=== PATIENT | male | born 1950 ===

== ENCOUNTER 2018-03-18 06:25 | Inpatient (IN) | payer BC ==
[~2018-03-18 06:25] MED LIST: BUPIVACAINE HCL/PF 0.25% (2.5MG/ML) 10 ML VIAL LSI ONE; BUPIVACAINE LIPOSOME/PF (EXPAREL) 266 MG/20 ML VIAL NR ONE
[2018-03-18] MEDS ORDERED: THROMBIN (BOVINE) 5,000 UNIT VIAL TP ONE ×2 (07:30→08:46)
[2018-03-18] MEDS ORDERED: HEPARIN NA (PORCINE) 5,000 UNITS/ML 1ML VIAL ONE (07:30)
[2018-03-18] MEDS ORDERED: BENZOIN/ALOE VERA/STORAX/TOLU 58 ML BOTTLE ONE (07:30)
[2018-03-18] MEDS ORDERED: MIDAZOLAM HCL 2 MG/2 ML SINGLE DOSE VIAL ONE (08:19)
[2018-03-18] MEDS ORDERED: fentaNYL CITRATE 250 MCG/5 ML VIAL ONE ×2 (08:19→09:26)
[2018-03-18] MEDS ORDERED: SUCCINYLCHOLINE CHLORIDE 200 MG/10 ML VIAL ONE (08:20)
[2018-03-18] MEDS ORDERED: ROCURONIUM BROMIDE 50 MG/5 ML VIAL ONE (08:20)
[2018-03-18] MEDS ORDERED: PROPOFOL 20 ML ONE ×9 (08:20→12:16)
[2018-03-18] MEDS ORDERED: DESFLURANE GAS 240 ML BOTTLE IH ONE (08:23)
[2018-03-18] MEDS ORDERED: KETAMINE HCL 200 MG/20 ML VIAL ONE (08:23)
[2018-03-18] MEDS ORDERED: ceFAZolin 2 GRAM PREMIX BAG IVPB ONE (08:45)
[2018-03-18] MEDS ORDERED: VANCOMYCIN 1 GRAM (PRE-DOCKED) 1,000 MG/250 ML BAG IVPB ONE (08:45)
[2018-03-18] MEDS ORDERED: ACETAMINOPHEN INJECTION 100 ML IVPB ONE (09:00)
[2018-03-18] MEDS ORDERED: BUPIVACAINE LIPOSOME/PF (EXPAREL) 266 MG/20 ML VIAL NR ONE ×2 (09:00→12:45)
[2018-03-18] MEDS ORDERED: VANCOMYCIN 1,000 MG VIAL (RESTRICTED TO ID ONLY) ONE (09:07)
[2018-03-18] MEDS ORDERED: ceFAZolin SODIUM 1 GM VIAL ONE ×2 (09:07→12:08)
[2018-03-18] MEDS ORDERED: LIDOCAINE HCL/PF 2% SDV 5ML VIAL ONE ×2 (09:07→12:48)
[2018-03-18] MEDS ORDERED: ePHEDrine SULFATE 50 MG/1 ML AMPULE ONE (09:30)
[2018-03-18] MEDS ORDERED: BUPIVACAINE HCL/PF 0.25% (2.5MG/ML) 10 ML VIAL ONE (10:05)
[2018-03-18] MEDS ORDERED: morphine SULFATE/Preservative Free 0.5 MG/ML (1cc Syringe) ONE ×3 (11:51→12:34)
[2018-03-18] MEDS ORDERED: NEOSTIGMINE METHYLSULFATE 0.5 MG/ML - 10 ML MDV ONE (12:24)
[2018-03-18] MEDS ORDERED: GLYCOPYRROLATE 0.2 MG/1 ML VIAL ONE (12:24)
[2018-03-18] MEDS ORDERED: ONDANSETRON 4 MG/2 ML VIAL ONE (12:37)
[2018-03-18] MEDS ORDERED: BUPIVACAINE HCL/PF 0.25% (2.5MG/ML) 10 ML VIAL LSI ONE (12:45)
[2018-03-18] MEDS ORDERED: TRANEXAMIC ACID 1000 MG/10 ML VIAL ONE (13:04)
[2018-03-18] MEDS ORDERED: ONDANSETRON 4 MG/2 ML VIAL IVPUSH PRN ×2 (13:41→14:02)
[2018-03-18] MEDS ORDERED: oxyCODONE HCL 5 MG TABLET PO PRN (13:41)
[2018-03-18] MEDS ORDERED: LACTATED RINGERS SOLUTION 1,000 ML IV SCH ×2 (13:45→14:15)
--- NOTE | 2018-03-18 13:47 | PN ---
Progress Note (short form) - Note Progress Note: 67M s/p L2, L3 laminectomies; L4, L5 revision laminectomies; L2-L3 PLIF; T12-S1 PISF POD #0. -Admit to ICU post-op. -Pain control: no NSAID's. -NPO until flatus. -DVT PPx: -Mechanical only: GILL's, SCD's. -Post-op Ancef x 2 doses. -f/u AM labs. -Incentive spirometry. -PT/OT/Rehab, OOB. -WBAT B/L UE & LE. -No heavy lifting, bending or twisting. -d/c Best catheter when ambulating; f/u TOV (8 hrs. max). -Keep dressing clean & dry. -B/L LE NV checks. -Care per primary medical hospitalist teams. -Will follow. -Discharge planning: f/u [facility] [place] office within 7-10 days of hospital discharge; call for appointment; . Shravan Sauer MD (Orthopaedic Surgery).
--- NOTE | 2018-03-18 13:51 | OP ---
Operative Note - Note: Operative Date: 03/18/18 Pre-Operative Diagnosis: Lumbar spinal stenosis Operation: 1. L2, L3 laminectomies. 2. L4, L5 revision laminectomies. 3. L2- L3 PLIF. 4. T12-S1 PISF. 5. Bone marrow aspirate. 6. Bone autograft. 7. Bone allograft Post-Operative Diagnosis: Same as Pre-op Surgeon: Tr Sauer Textile Conservator: Shravan Sauer Anesthesiologist/PAINT STRIPING MACHINE OPERATOR: Michelle Prasad Anesthesia: General, Spinal Specimens Removed: L2-L3 disc Estimated Blood Loss (mls): 600 Drains & Tubes with Location: 1 x superficial HemoVac Blood Volume Replaced (mls): 210 (Cell Saver) Fluid Volume Replaced (mls): 3,000 (Crystalloid) Operative Report Dictated: Yes
--- NOTE | 2018-03-18 17:02 | PN ---
Physical Exam: SUBJECTIVE: Patient seen and examined in ICU. Pain is well-managed. OBJECTIVE: Vital Signs Period Temp Pulse Resp BP Sys/Domingo Pulse Ox Last 24 Hr 97.5 F-98.1 F 69-98 15-24 102-130/48-80 96-100 GENERAL: The patient is awake, alert, and fully oriented, in no acute distress. LUNGS: Breath sounds equal, clear to auscultation bilaterally, no wheezes, no crackles, no accessory muscle use. HEART: Regular rate and rhythm, S1, S2 ABDOMEN: Soft, nontender, nondistended EXTREMITIES: 2+ pulses, warm, well-perfused, no edema. NEUROLOGICAL: Cranial nerves II through XII grossly intact. Normal speech. BACK: surgical dressing not visualized; Hemovac drain with dark sanguinous drainage Laboratory Results - last 24 hr 03/18/18 03/18/18 06:39 07:06 Blood Type B POSITIVE B POSITIVE Antibody Screen Negative Active Medications Generic Name Dose Route Start Last Admin Trade Name Freq PRN Reason Stop Dose Admin Acetaminophen 1,000 mg 03/18/18 18:00 Ofirmev Injection - IVPB 03/20/18 10:01 Q8H-IV ESTELA Amlodipine Besylate 10 mg 03/19/18 10:00 Norvasc - PO DAILY ESTELA Finasteride 5 mg 03/19/18 10:00 Proscar - PO DAILY ESTELA Cefazolin Sodium/Dextrose 2 gm in 50 mls @ 100 mls/hr 03/18/18 18:00 Ancef 2 Gm Premixed Ivpb - IVPB 03/19/18 02:29 Q8H-IV ESTELA Losartan Potassium 50 mg 03/18/18 22:00 Cozaar - PO BID ESTELA Eszopicone(Lunesta) 3 mg 03/18/18 22:00 3mg- Patient's Own PO Medication (Non- HS PRN Formulary) sleep Ondansetron HCl 4 mg 03/18/18 13:41 Zofran Injection IVPUSH Q6H PRN NAUSEA AND/OR VOMITING Oxycodone HCl 5 mg 03/18/18 13:41 Roxicodone - PO 03/19/18 13:40 Q4H PRN PAIN LEVEL 4-6 Oxycodone HCl 10 mg 03/18/18 13:41 Roxicodone - PO Q4H PRN PAIN LEVEL 7 - 10 Tamsulosin HCl 0.4 mg 03/19/18 08:30 Flomax - PO DAILY@0830 [facility] ASSESSMENT/PLAN 67 year-old male with a PMH significant for HTN, HLD, CAD, BPH, gout, primary insomnia, and lumbar spinal stenosis s/p surgery today. Lumbar spinal stenosis s/p L2, L3 laminectomies, L4, L5 revision laminectomies, L2-L3 PLIF, T12-S1 PISF --POD #0 --oxycodone, IV Tylenol, Zofran PRN for pain and nausea; no NSAIDS --NPO until flatus --post-op Ancef x 2 doses --incentive spirometry --d/c pires catheter when ambulating; f/u TOV (8 hrs. max) --b/l LE neuro checks --labs in am Hypertension --continue Losartan, amlodipine Hyperlipidemia --continue statin Coronary artery disease --continue amlodipine, Losartan, statin BPH --continue tamsulosin Primary insomnia --hold Lunesta for now, need to be able to perform neuro checks Physical therapy --WBAT B/L UE & LE --no heavy lifting, bending or twisting DVT prophylaxis: mechanical only, SCDs Dispo: continues to require ICU level care. Full code. Visit type - Emergency Visit Emergency Visit: No - New Patient This patient is new to me today: Yes Date on this admission: 03/18/18 - Critical Care Critical Care patient: Yes Total Critical Care Time (in minutes): 35 Critical Care Statement: The care of this patient involved high complexity decision making to prevent further life threatening deterioration of the patient 's condition and/or to evaluate & treat vital organ system(s) failure or risk of failure.
[2018-03-18] MEDS: ACETAMINOPHEN 1000 MG/100 ML VIAL (NON FORMULARY) IVPB SCH (17:32)
[2018-03-18] MEDS: CEFAZOLIN 2 GM/D5W 2 GM/50 ML ML IVPB SCH (17:36)
[2018-03-18] MEDS ORDERED: ceFAZolin 2 GRAM PREMIX BAG IVPB SCH (18:00)
[2018-03-18] MEDS: LACTATED RINGERS SOLUTION 1,000 ML/1,000 ML INFUS.BAG IV SCH (19:00)
--- NOTE | 2018-03-18 19:24 | CONSULT ---
Consultation: REQUESTING PROVIDER: CONSULT REQUEST: We have been asked to medically evaluate this patient for ( specify). HISTORY OF PRESENT ILLNESS: This is a 67 yo M with lumbar spinal stenosis, HTN, HLD, DM, BPH, CAD, gout, primary insomnia, who presents POD 0 s/p L2, L3 laminectomies, L4- L5 revision laminectomies, L2-L3 PLIF, T12-S1 PISF, Bone marrow aspirate, Bone autograft and Bone allograft. EBS 600, replaced cell saver 210 and 3 L Crystalloid. Patient is afebrile and hemodynamically stable. Patient denies cp, son, throat pain, cough, n/v. REVIEW OF SYSTEMS: CONSTITUTIONAL: Absent: fever, chills HEENT: Absent: rhinorrhea, nasal congestion, throat pain, throat swelling, difficulty swallowing CARDIOVASCULAR: Absent: chest pain, syncope, palpitations RESPIRATORY: Absent: cough, shortness of breath, orthopnea GASTROINTESTINAL: Absent: abdominal pain, abdominal distension, nausea, vomiting GENITOURINARY: Absent: flank pain MUSCULOSKELETAL: Absent: joint swelling SKIN: Absent: rash, itching, pallor HEMATOLOGIC/IMMUNOLOGIC: Absent: easy bleeding, easy bruising ENDOCRINE: Absent: heat intolerance, cold intolerance NEUROLOGIC: Absent: headache, new focal weakness or paresthesias PSYCHIATRIC: Absent: anxiety, depression PHYSICAL EXAMINATION Vital Signs - 24 hr 03/18/18 03/18/18 03/18/18 07:04 07:21 13:50 Temperature 98.1 F 97.5 F L Pulse Rate 69 77 Respiratory 16 16 Rate Blood Pressure 123/77 110/50 L O2 Sat by Pulse 100 99 Oximetry (%) 03/18/18 03/18/18 03/18/18 14:00 14:15 14:30 Temperature Pulse Rate 95 H 89 87 Respiratory 16 24 H 22 H Rate Blood Pressure 102/80 122/68 111/72 O2 Sat by Pulse 96 96 98 Oximetry (%) 03/18/18 03/18/18 03/18/18 14:45 15:00 15:15 Temperature Pulse Rate 98 H 98 H 80 Respiratory 15 16 16 Rate Blood Pressure 122/48 L 130/80 125/58 L O2 Sat by Pulse 99 96 100 Oximetry (%) 03/18/18 03/18/18 03/18/18 15:30 15:45 16:00 Temperature Pulse Rate 80 84 78 Respiratory 17 16 18 Rate Blood Pressure 125/74 129/59 L 118/70 O2 Sat by Pulse 100 100 100 Oximetry (%) 03/18/18 03/18/18 03/18/18 16:15 16:30 17:17 Temperature 97.8 F 98.2 F Pulse Rate 80 82 Respiratory 16 16 Rate Blood Pressure 122/64 130/74 O2 Sat by Pulse 100 Oximetry (%) 03/18/18 18:06 Temperature Pulse Rate 81 Respiratory 22 H Rate Blood Pressure 134/79 O2 Sat by Pulse Oximetry (%) GENERAL: Awake, alert, and fully oriented, in no acute distress. HEAD: Normal with no signs of trauma. EYES: Pupils equal, round and reactive to light, extraocular movements intact, sclera anicteric, conjunctiva clear. No lid lag. EARS, NOSE, THROAT: Moist mucous membranes. NECK: supple LUNGS: Breath sounds equal, clear to auscultation bilaterally. HEART: Regular rate and rhythm, normal S1 and S2 ABDOMEN: Soft, nontender, not distended, globally decreased bowel sounds, no guarding, no rebound, no masses. MUSCULOSKELETAL: No CVA tenderness. UPPER EXTREMITIES: 2+ pulses, warm, well-perfused. LOWER EXTREMITIES: 2+ pulses, warm, well-perfused. No calf tenderness. No peripheral edema. NEUROLOGICAL: Cranial nerves II-XII grossly intact. Normal speech. LE strenght 5/5 and sensation intact b/l. UE strenght 5/5 and sensation intact b/l PSYCHIATRIC: Cooperative. Good eye contact. Appropriate mood and affect. SKIN: Warm, dry Laboratory Results - last 24 hr 03/18/18 03/18/18 06:39 07:06 Blood Type B POSITIVE B POSITIVE Antibody Screen Negative Active Medications Generic Name Dose Route Start Last Admin Trade Name Magaly PRN Reason Stop Dose Admin Acetaminophen 1,000 mg 03/18/18 18:00 03/18/18 17:32 Ofirmev Injection - IVPB 03/20/18 10:01 1,000 mg Q8H-IV ESTELA Administration Amlodipine Besylate 10 mg 03/19/18 10:00 Norvasc - PO DAILY ESTELA Finasteride 5 mg 03/19/18 10:00 Proscar - PO DAILY ESTELA Cefazolin Sodium/Dextrose 2 gm in 50 mls @ 100 mls/hr 03/18/18 18:00 17:36 Ancef 2 Gm Premixed Ivpb - IVPB 03/19/18 02:29 100 mls/hr Q8H-IV ESTELA Administration Losartan Potassium 50 mg 03/18/18 22:00 Cozaar - PO BID ESTELA Eszopicone(Lunesta) 3 mg 03/18/18 22:00 3mg- Patient's Own PO Medication (Non- HS PRN Formulary) sleep Ondansetron HCl 4 mg 03/18/18 13:41 Zofran Injection IVPUSH Q6H PRN NAUSEA AND/OR VOMITING Oxycodone HCl 5 mg 03/18/18 13:41 Roxicodone - PO 03/19/18 13:40 Q4H PRN PAIN LEVEL 4-6 Oxycodone HCl 10 mg 03/18/18 13:41 Roxicodone - PO Q4H PRN PAIN LEVEL 7 - 10 Tamsulosin HCl 0.4 mg 03/19/18 08:30 Flomax - PO DAILY@0830 [facility] ASSESSMENT/PLAN: 67 yo M with PMH of spinal stenosis, HTN, HLD, diet controlled DM, BPH, CAD, gout, primary insomnia,POD 0 s/p L2, L3 laminectomies, L4- L5 revision laminectomies, L2-L3 PLIF, T12-S1 PISF. POD 0 s/p L2, L3 laminectomies, L4- L5 revision laminectomies, L2-L3 PLIF, T12- S1 PISF HTN HLD DM BPH CAD Gout insomnia -oxicodone and tylenol pain control, avoid NSAIDS -zofran prn nausea -ppx ancef 2 doses -LR @ 125 -npo until flatus -maintain pires until ambulating; f/u UO -incentive spirometry -bed rest -scd's dvt ppx -f/u h/h -b/l LE neuro checks q2h -continue home norvasc, cozar -contninue home flomax -continue home lunesta -asa, statin held. Dispo: We will continue to follow the patient. Thank you for this consultative opportunity. Problem List - Problems (1) Spinal stenosis Code(s): M48.00 - SPINAL STENOSIS, SITE UNSPECIFIED (2) Borderline diabetes Code(s): R73.03 - PREDIABETES (3) Borderline diabetes mellitus Code(s): R73.03 - PREDIABETES (4) HTN (hypertension) Code(s): I10 - ESSENTIAL (PRIMARY) HYPERTENSION (5) HLD (hyperlipidemia) Code(s): E78.5 - HYPERLIPIDEMIA, UNSPECIFIED (6) BPH (benign prostatic hyperplasia) Code(s): N40.0 - BENIGN PROSTATIC HYPERPLASIA WITHOUT LOWER URINRY TRACT SYMP (7) Primary insomnia Code(s): F51.01 - PRIMARY INSOMNIA (8) S/P laminectomy Code(s): Z98.890 - OTHER SPECIFIED POSTPROCEDURAL STATES Visit type - Emergency Visit Emergency Visit: Yes ED Registration Date: 03/18/18 Care time: The patient presented to the Emergency Department on the above date and was hospitalized for further evaluation of their emergent condition. - New Patient This patient is new to me today: Yes Date on this admission: 03/18/18 - Critical Care Critical Care patient: Yes Total Critical Care Time (in minutes): 35 Critical Care Statement: The care of this patient involved high complexity decision making to prevent further life threatening deterioration of the patient 's condition and/or to evaluate & treat vital organ system(s) failure or risk of failure.
[2018-03-18] MEDS: oxyCODONE HCL 5 MG TABLET PO PRN (20:20)
[2018-03-18] MEDS: LOSARTAN POTASSIUM 50 MG TABLET (FP) PO SCH (21:42)
[2018-03-18] MEDS ORDERED: ESZOPICLONE 3 MG PO PRN (22:00)
--- NOTE | 2018-03-18 22:01 | OP ---
DATE OF OPERATION: 03/18/2018 SURGEON: Tr Sauer M.D. MANUFACTURING ENGINEER PAINT: Shravan Sauer M.D. PREOPERATIVE DIAGNOSES: Spinal stenosis L2, 3, 4, 5 with kyphosis and segmental instability. POSTOPERATIVE DIAGNOSES: Spinal stenosis L2, 3, 4, 5 with kyphosis and segmental instability. OPERATION PERFORMED: 1. Laminectomy L2-3, revision laminectomy L4-5. 2. Daugherty-Loaiza osteotomy L3-4. 3. Posterior lumbar interbody fusion with cage, L2-3. 4. Instrumented pedicle screw instrumentation T12 to S1. 5. Posterior arthrodesis T12 to S1. 6. Use of bone marrow aspirate concentrate as well as intraoperative fluoroscopy. 7. Complex wound closure of 40 cm. ANESTHESIA: General. ANTIBIOTICS GIVEN: 2 g Kefzol, 1 g vancomycin preoperative; 1 g Kefzol given at the time of instrumentation. The wounds were thoroughly lavaged throughout the procedure with normal saline. OPERATION DETAILS: The patient was correctly identified, brought out into the operating room, placed prone on the Tushar table. Timeout was called. Imaging was available for intraoperative evaluation. Neuromonitoring placed. Padding of all bony prominences with attention to the eyes as well as the positioning of the brachial plexus. The old wound was excised. The old wound was then extended proximally to the lower thoracic level at approximately T11. A dissection using electrocautery as well as knives, Daniel elevators, dissection was taken through down to the tip of the spinous processes, skirting around the spinous processes, over the lamina, over the facet joints to expose the entire spine from about T11 to S1. The distal elements that had been dissected in the past with fibrous tissues were readily noted. Lateral fluoroscopic x-rays helped us identify the areas appropriately noted and correlated with the MRI scanning, where there was a large bulging disk, retrolisthesis, flat back, as noted on the MRI, as well as stenosis due to disk prolapse, this at L2- 3. The disk at L4-5 was wide open and no bulging noted. Using Leksell rongeurs, Kerrison upcuts as well as osteotomes to incise the lateral surface of the vertebral canal margins, the bone was imploded inwards. The bone of the distal end of the original surgery, which was thickened with bone, was excised using osteotomes appropriately. All bone was delivered and saved for use of as autologous bone graft in the [employer]. This gave a complete laminectomy from L2 right down to L5, thus in L2-3 laminectomy and revision L3-4 laminectomy being performed at L3-4. A Daugherty-Loaiza osteotomy was performed to correct the actual kyphotic alignment. This was simply performed using Leksell rongeurs as well as Kerrison upcuts. The dura was unharmed and remained fully intact. This was exposed widely from L2 right down to L5. All neural foramina were capacious and exit of each nerve was noted freely within the confines of each foramen. Once this had been completed, the theca was retracted from [id number] at the L2-3 level. The epidural veins were dealt with with bipolar Bovie set at 50 mA. The diathermy of all these vessels enabled easy access to the disk. The disk was opened with an annulotomy and the shaver was inserted. The shaving was to size 9, and the size, it must be noted, that all disk material was removed, the disk was dry, but the endplates were freed of all cartilaginous material right down to bone itself. The disk was filled with bone, that is autologous bone that had been milled in the [employer], and the cage followed. The cage had bone graft inserted in it; this was a TETRAfuse cage, this was a 10-mm, 40-link spacer, 23 mm in length. Cage was seated anteriorly to encourage the lordosis appropriately. Once this had been completed, the pedicles of T12 to S1 were entered. The only pedicle not seated was L5, but each pedicle was drilled with a 4.5 drill bit, each pedicle was palpated with a ball-tip feeler, and once this had been completed, each screw measured 6.5 x 45 screws and accepting the S1 and L4 screws, which were measured firstly by 6.5. Each screw was measured with intraoperative neuromonitoring and found to be well-above the safe parameters, that is well above 20 mA, each screw. Once this had been completed, the rods were contoured appropriately and fixed to the screw heads with the appropriate torque device, tightening the caps at each level, one crosslink utilized in the mid section of the actual procedure. At that point, the muscle was gently retracted laterally. The intertransverse plane opened completely. We harvested 120 mL of marrow aspirate concentrate from the left posterior ileum, and this was appropriately spun down to the CD34 cells. The concentrate enabled premixing with the bone graft, and the bone graft was placed in the intertransverse plane from [id number] and started from T12 right down to S1, thus completing the entire T12 to S1 instrumentation. The rods held the Daughetry-Loaiza osteotomy open, indeed PLIF cage seated encouraged further lordosis as well. The wounds were thoroughly lavaged throughout the closure, muscle 1 Vicryl, fascia 1 Vicryl, subcutaneous 1 and 2-0 Vicryl, skin ben. Drainage, 1/8-inch Hemovac x1. This concluded a 40-cm complex wound closure. No complications. Operation went extremely well. Cell Saver blood given back to him amounted to about 250 mL, about 400 mL of blood were lost at the operation. PLAN: For patient to be nursed in the ICU for pain management. Intraoperative Duramorph and fentanyl with Marcaine inserted, followed by Exparel being seated in the dorsal rami and appropriate soft tissue accordingly. MD WANG [id number] MTDD
[2018-03-18] MEDS: ATORVASTATIN CA 10 MG TABLET (FP) PO SCH (23:04)
[2018-03-19] MEDS: ACETAMINOPHEN 1000 MG/100 ML VIAL (NON FORMULARY) IVPB SCH ×3 (01:05→18:00)
[2018-03-19] MEDS: CEFAZOLIN 2 GM/D5W 2 GM/50 ML ML IVPB SCH (01:05)
[2018-03-19] MEDS: oxyCODONE HCL 5 MG TABLET PO PRN ×4 (05:00→22:17)
[2018-03-19 06:30] LABS: HEMOGLOBIN 9.3 GM/dL (11.7-16.9); MCH 20.9 pg (25.7-33.7); MCHC 30.8 g/dl (32.0-35.9); MEAN CELL VOLUME 67.8 fl (80-96); PLATELET COUNT 230 K/MM3 (134-434); RBC 4.43 M/mm3 (4.00-5.60); RDW 15.4 % (11.9-15.9); WHITE BLOOD COUNT 14.7 K/mm3 (4.0-10.0)
[2018-03-19 07:24] LABS: ANION GAP 10 MMOL/L (8-16); BLOOD UREA NITROGEN 17 mg/dL (7-18); CALCIUM 8.8 mg/dL (8.5-10.1); CHLORIDE 107 mmol/L (98-107); CO2 24 mmol/L (21-32); CREATININE 0.9 mg/dL (0.55-1.3); GLUCOSE,RANDOM 92 mg/dL (74-106); PHOSPHOROUS 4.8 mg/dL (2.5-4.9); POTASSIUM 4.6 mmol/L (3.5-5.1); SODIUM 141 mmol/L (136-145)
--- NOTE | 2018-03-19 08:42 | PN ---
Progress Note, Physician Chief Complaint: s/p L4-S1 lumbar decomprssion adn fusion under general anesthesia History of Present Illness: intrathecal duramorph for post op pain control. post op day one - Current Medication List Current Medications: Active Medications Acetaminophen (Ofirmev Injection -) 1,000 mg IVPB Q8H-IV ESTELA Stop: 03/20/18 10:01 Last Admin: 03/19/18 01:05 Dose: 1,000 mg Amlodipine Besylate (Norvasc -) 10 mg PO DAILY [facility] Atorvastatin Calcium (Lipitor -) 10 mg PO HS [facility] Last Admin: 03/18/18 23:04 Dose: 10 mg Finasteride (Proscar -) 5 mg PO DAILY [facility] Lactated Ringer's (Lactated Ringers Solution) 1,000 ml in 1,000 mls @ 125 mls/ hr IV ASDIR [facility] Last Admin: 03/18/18 19:00 Dose: 125 mls/hr Losartan Potassium (Cozaar -) 50 mg PO BID [facility] Last Admin: 03/18/18 21:42 Dose: 50 mg Ondansetron HCl (Zofran Injection) 4 mg IVPUSH Q6H PRN PRN Reason: NAUSEA AND/OR VOMITING Oxycodone HCl (Roxicodone -) 5 mg PO Q4H PRN PRN Reason: PAIN LEVEL 4-6 Stop: 03/19/18 13:40 Oxycodone HCl (Roxicodone -) 10 mg PO Q4H PRN PRN Reason: PAIN LEVEL 7 - 10 Last Admin: 03/19/18 05:00 Dose: 10 mg Tamsulosin HCl (Flomax -) 0.4 mg PO DAILY@0830 [facility] - Objective Vital Signs: Vital Signs Temperature 98.7 F 03/19/18 02:00 Pulse Rate 69 03/19/18 04:35 Respiratory Rate 18 03/19/18 04:35 Blood Pressure 117/65 03/19/18 04:35 O2 Sat by Pulse Oximetry (%) 100 03/18/18 19:51 Constitutional: Yes: Well Nourished Cardiovascular: Yes: WNL Respiratory: Yes: WNL Gastrointestinal: Yes: WNL Labs: CBC, BMP 03/19/18 05:30 03/19/18 05:30 Assessment/Plan Pain controlled, no nausea or vomiting, no adverse effects from anesthetic. Dept of anesthesia will sign off care at this time.
--- NOTE | 2018-03-19 09:08 | PN ---
Physical Exam: SUBJECTIVE: Patient seen and examined at the bedside. in no acute distress. pain controlled. not yet passing gas, but no abdominal pain or tenderness. OBJECTIVE: post op day #1: L2,L3 laminectomies. L4, L5 revision laminectomies, PLIF. T12- S1 PISF. bone marrow aspirate. bone autograft, bone allograft Vital Signs Period Temp Pulse Resp BP Sys/Domingo Pulse Ox Last 24 Hr 97.5 F-98.9 F 67-98 12-24 102-148/48-83 96-100 GENERAL: The patient is awake, alert, and fully oriented, in no acute distress. HEAD: Normal with no signs of trauma. EYES: PERRL, extraocular movements intact, sclera anicteric, conjunctiva clear. No ptosis. ENT: Ears normal, nares patent, oropharynx clear without exudates, moist mucous membranes. NECK: Trachea midline, full range of motion, supple. LUNGS: Breath sounds equal, clear to auscultation bilaterally HEART: Regular rate and rhythm ABDOMEN: Soft, nontender, nondistended, normoactive bowel sounds, no guarding, no rebound, no hepatosplenomegaly, no masses. EXTREMITIES: no edema. NEUROLOGICAL:Normal speech, gait not observed. PSYCH: Normal mood, normal affect. SKIN: Warm, dry, normal turgor, no rashes or lesions noted Laboratory Results - last 24 hr 03/18/18 03/19/18 03/19/18 07:06 05:30 05:30 WBC 14.7 H RBC 4.43 Hgb 9.3 L Hct 30.0 L MCV 67.8 L MCH 20.9 L MCHC 30.8 L RDW 15.4 Plt Count 230 MPV 8.0 Sodium 141 Potassium 4.6 Chloride 107 Carbon Dioxide 24 Anion Gap 10 BUN 17 Creatinine 0.9 Creat Clearance w eGFR > 60 Random Glucose 92 Calcium 8.8 Phosphorus 4.8 Magnesium 2.0 Blood Type B POSITIVE Active Medications Generic Name Dose Route Start Last Admin Trade Name Freq PRN Reason Stop Dose Admin Acetaminophen 1,000 mg 03/18/18 18:00 03/19/18 01:05 Ofirmev Injection - IVPB 03/20/18 10:01 1,000 mg Q8H-IV ESTELA Administration Amlodipine Besylate 10 mg 03/19/18 10:00 Norvasc - PO DAILY ESTELA Atorvastatin Calcium 10 mg 10/01/18 22:30 03/18/18 23:04 Lipitor - PO 10 mg HS ESTELA Administration Finasteride 5 mg 03/19/18 10:00 Proscar - PO DAILY ESTELA Lactated Ringer's 1,000 ml in 1,000 mls @ 125 mls/hr 03/18/18 20:45 03/18/18 19:00 Lactated Ringers Solution IV 125 mls/hr ASDIR ESTELA Administration Losartan Potassium 50 mg 03/18/18 22:00 03/18/18 21:42 Cozaar - PO 50 mg BID ESTELA Administration Ondansetron HCl 4 mg 03/18/18 13:41 Zofran Injection IVPUSH Q6H PRN NAUSEA AND/OR VOMITING Oxycodone HCl 5 mg 03/18/18 13:41 Roxicodone - PO 03/19/18 13:40 Q4H PRN PAIN LEVEL 4-6 Oxycodone HCl 10 mg 03/18/18 13:41 03/19/18 05:00 Roxicodone - PO 10 mg Q4H PRN Administration PAIN LEVEL 7 - 10 Tamsulosin HCl 0.4 mg 03/19/18 08:30 Flomax - PO DAILY@0830 [facility] ASSESSMENT/PLAN: Patient is a 67 year old male with a significant past medical history of spinal stenosis, hypertension, hld, dm (diet controlled), BPH, CAD, gout and insomnia. He is POD #1 of L2, L3 laminectomies, L4- L5 revision laminectomies, L2-L3 PLIF, T12-S1 PISF. Currently in the ICU for close post op monitoring. Back Surgery s/p laminectomies, L4- L5 revision laminectomies, L2-L3 PLIF, T12-S1 PISF. Currently in the ICU for close post op monitoring. Denies pain currently, NPO until passing gas, has + bowel sound. Given preop antibiotics, vitals stable. wbc mildly elevated w/o fever. monitor Encourage incentive hipolito PT when cleared per surgery. On IVF LR, SCDs bowel regimen Card: HLD: On Lipitor HTN: BP contolled on Cozaar CAD: On lipitor Endocrine: DM: Monitor daily serum glucose. : BPH, montior intake and output. On Proscar, flomax fen LR @ 125cc/hr monitor electrolytes with daily labs advance diet as tolerated prophy SCDs No a/c full code Visit type - Emergency Visit Emergency Visit: Yes ED Registration Date: 03/18/18 Care time: The patient presented to the Emergency Department on the above date and was hospitalized for further evaluation of their emergent condition. - New Patient This patient is new to me today: Yes Date on this admission: 03/19/18 - Critical Care Critical Care patient: Yes Total Critical Care Time (in minutes): 45 Critical Care Statement: The care of this patient involved high complexity decision making to prevent further life threatening deterioration of the patient 's condition and/or to evaluate & treat vital organ system(s) failure or risk of failure. - Discharge Referral Referred to [facility] Med P.C.: No
[2018-03-19] MEDS: TAMSULOSIN HCL 0.4 MG CAP.ER.24H (FP) PO SCH (09:30)
[2018-03-19] MEDS: LOSARTAN POTASSIUM 50 MG TABLET (FP) PO SCH ×2 (10:10→22:17)
[2018-03-19] MEDS: FINASTERIDE 5 MG TABLET (FP) PO SCH (10:10)
[2018-03-19] MEDS: amLODIPine BESYLATE 10 MG TABLET (FP) PO SCH (10:10)
--- NOTE | 2018-03-19 12:52 | PN ---
Teaching Attending Note Name of Resident: Jania Diamond ATTENDING PHYSICIAN STATEMENT I saw and evaluated the patient. I reviewed the resident's note and discussed the case with the resident. I agree with the resident's findings and plan as documented. SUBJECTIVE: Pt seen and examined in the ICU. Pain controlled. Denies nausea, reports flatus. No shortness of breath or chest pain. OBJECTIVE: Vital Signs Period Temp Pulse Resp BP Sys/Domingo Pulse Ox Last 24 Hr 97.5 F-98.9 F 67-98 12-24 102-148/48-83 96-100 Intake & Output 03/16/18 03/17/18 03/18/18 03/19/18 23:59 23:59 23:59 23:59 Intake Total 4035 1600 Output Total 2730 610 Balance 1305 990 Weight 94.007 kg Gen: NAD at rest Heart: RRR Lung: decreased breath sounds at the bases Abd: soft, nontender Ext: no edema Drain serosanguinous CBC, BMP 03/19/18 05:30 03/19/18 05:30 Active Medications Acetaminophen (Ofirmev Injection -) 1,000 mg IVPB Q8H-IV ESTELA Stop: 03/20/18 10:01 Last Admin: 03/19/18 10:10 Dose: 1,000 mg Amlodipine Besylate (Norvasc -) 10 mg PO DAILY [facility] Last Admin: 03/19/18 10:10 Dose: 10 mg Atorvastatin Calcium (Lipitor -) 10 mg PO HS [facility] Last Admin: 03/18/18 23:04 Dose: 10 mg Finasteride (Proscar -) 5 mg PO DAILY [facility] Last Admin: 03/19/18 10:10 Dose: 5 mg Lactated Ringer's (Lactated Ringers Solution) 1,000 ml in 1,000 mls @ 125 mls/ hr IV ASDIR [facility] Last Admin: 03/18/18 19:00 Dose: 125 mls/hr Losartan Potassium (Cozaar -) 50 mg PO BID [facility] Last Admin: 03/19/18 10:10 Dose: 50 mg Ondansetron HCl (Zofran Injection) 4 mg IVPUSH Q6H PRN PRN Reason: NAUSEA AND/OR VOMITING Oxycodone HCl (Roxicodone -) 5 mg PO Q4H PRN PRN Reason: PAIN LEVEL 4-6 Stop: 03/19/18 13:40 Oxycodone HCl (Roxicodone -) 10 mg PO Q4H PRN PRN Reason: PAIN LEVEL 7 - 10 Last Admin: 03/19/18 05:00 Dose: 10 mg Tamsulosin HCl (Flomax -) 0.4 mg PO DAILY@0830 ESTELA Last Admin: 03/19/18 09:30 Dose: 0.4 mg ASSESSMENT AND PLAN: Lumbar spinal stenosis s/p L2, L3 Laminectomies/L4, L5 Revision Laminectomies s/p L2-L3 PLIF/T12-S1 PISF HTN Hypercholesterolemia BPH Anemia - pain control - incentive spirometry - PO as tolerated - monitor drain output - d/c pires when OOB - rehab/PT - DVT prophylaxis - disposition per surgery
--- NOTE | 2018-03-19 14:19 | PN ---
Physical Exam: SUBJECTIVE: - POD#1 s/p L2-L3 laminectomy and PISF, L4-L5 revision laminectomy and PISF. - Reports feeling great today, pain controlled. Passing flatus in morning. OBJECTIVE: Vital Signs Period Temp Pulse Resp BP Sys/Domingo Pulse Ox Last 24 Hr 97.8 F-98.9 F 67-98 12-24 111-148/48-83 96-100 General: Comfortable, no acute distress HEENT: PERRL, EOMI, MMM, voice normal Cards: RRR, no murmur appreciated Pulm: Comfortable on room air, clear to auscultation bilaterally Abd: Soft, nontender, nondistended Back: Surgical dressing in place. No strikethrough. Hemovac in place with sanguinous output Ext: Atraumatic. No LE edema. ROM intact. Strength 5/5 and equal bilaterally Vasc: Extremities WWP. Skin: Normal color, no rashes or lesions Neuro: A&Ox3, CN grossly intact, normal speech, motor/sensory grossly intact and symmetric Psych: Mood appropriate to situation Laboratory Results - last 24 hr 03/19/18 03/19/18 05:30 05:30 WBC 14.7 H RBC 4.43 Hgb 9.3 L Hct 30.0 L MCV 67.8 L MCH 20.9 L MCHC 30.8 L RDW 15.4 Plt Count 230 MPV 8.0 Sodium 141 Potassium 4.6 Chloride 107 Carbon Dioxide 24 Anion Gap 10 BUN 17 Creatinine 0.9 Creat Clearance w eGFR > 60 Random Glucose 92 Calcium 8.8 Phosphorus 4.8 Magnesium 2.0 Active Medications Generic Name Dose Route Start Last Admin Trade Name Magaly PRN Reason Stop Dose Admin Acetaminophen 1,000 mg 03/18/18 18:00 03/19/18 10:10 Ofirmev Injection - IVPB 03/20/18 10:01 1,000 mg Q8H-IV ESTELA Administration Amlodipine Besylate 10 mg 03/19/18 10:00 03/19/18 10:10 Norvasc - PO 10 mg DAILY ESTELA Administration Atorvastatin Calcium 10 mg 03/18/18 22:30 03/18/18 23:04 Lipitor - PO 10 mg HS ESTELA Administration Finasteride 5 mg 03/19/18 10:00 03/19/18 10:10 Proscar - PO 5 mg DAILY ESTELA Administration Lactated Ringer's 1,000 ml in 1,000 mls @ 125 mls/hr 03/18/18 20:45 03/18/18 19:00 Lactated Ringers Solution IV 125 mls/hr ASDIR ESTELA Administration Losartan Potassium 50 mg 03/18/18 22:00 03/19/18 10:10 Cozaar - PO 50 mg BID ESTELA Administration Ondansetron HCl 4 mg 03/18/18 13:41 Zofran Injection IVPUSH Q6H PRN NAUSEA AND/OR VOMITING Oxycodone HCl 10 mg 03/18/18 13:41 03/19/18 13:33 Roxicodone - PO 10 mg Q4H PRN Administration PAIN LEVEL 7 - 10 Tamsulosin HCl 0.4 mg 03/19/18 08:30 03/19/18 09:30 Flomax - PO 0.4 mg DAILY@0830 ESTELA Administration ASSESSMENT/PLAN: Ryan Milan is a 67yo man with a PMH of CAD, HTN, HLD, BPH, gout, primary insomia who was admitted to the ICU post L2,L3 laminectomy and PISF, L4,L5 revision laminectomy and PISF. His surgery was completed without apparent complication and he has recovered well overnight. Neuro: - s/p laminectomy - Adequate pain control with IV acetaminophen and PRN oxycodone - Avoid NSAIDS CV: - h/p CAD, HTN, HLD - Continue home losartan, atorvastatin, amlodipine Pulm: - No issues - Encourage OOB and IS 10x/hr Heme: - Postoperative acute blood loss anemia, Hgb 0.3 - Monitor daily CBC GI: - Passing flatus, no BM - Advance to clears for lunch. Plan to advance diet for dinner if tolerated Renal: - Best in place. Will d/c once ambulating - UOP appropriate ID: - Perioperative ancef Endo: - No issues Psych: - Reports anxiety - No meds currently Musc: - WBAT BUE and BLE - PT/rehab - No heaving lifting, twisting, or bending - OOB as tolerated PPx: - Non-pharmacologic DVT ppx only. GILL hose in place - No indication for GI ppx FEN: - Clears, plan to advance as tolerated - LR@125, will d/c once adequate PO intake - Replete lytes PRN Dispo: - Monitor in ICU, transfer per ortho team Seen and discussed with Dr Norris. Jania Diamond PGY1 Visit type - Emergency Visit Emergency Visit: No - New Patient This patient is new to me today: Yes Date on this admission: 03/19/18 - Critical Care Critical Care patient: Yes Total Critical Care Time (in minutes): 45 Critical Care Statement: The care of this patient involved high complexity decision making to prevent further life threatening deterioration of the patient 's condition and/or to evaluate & treat vital organ system(s) failure or risk of failure.
[2018-03-19] MEDS ORDERED: DOCUSATE SODIUM 100 MG CAPSULE (FP) PO PRN (15:27)
--- NOTE | 2018-03-19 17:22 | PN ---
Progress Note (short form) - Note Progress Note: Pt c/o worsening chest pain this evening. Appears pleuritic, however will check : troponin, EKG, and CXR for changes. Will follow Thank you Rahel Ratliff MD PGY-2 ICU team
[2018-03-19] MEDS ORDERED: ATORVASTATIN CA 40 MG TABLET (FP) PO SCH (22:00)
[2018-03-19] MEDS: LACTATED RINGERS SOLUTION 1,000 ML/1,000 ML INFUS.BAG IV SCH (22:16)
[2018-03-19] MEDS: ATORVASTATIN CA 10 MG TABLET (FP) PO SCH (22:17)
[2018-03-20] MEDS: oxyCODONE HCL 5 MG TABLET PO PRN ×4 (01:26→15:47)
[2018-03-20] MEDS: ACETAMINOPHEN 1000 MG/100 ML VIAL (NON FORMULARY) IVPB SCH ×2 (02:02→09:21)
[2018-03-20] MEDS: TAMSULOSIN HCL 0.4 MG CAP.ER.24H (FP) PO SCH (08:20)
[2018-03-20] MEDS: LOSARTAN POTASSIUM 50 MG TABLET (FP) PO SCH ×2 (09:30→22:04)
[2018-03-20] MEDS: amLODIPine BESYLATE 10 MG TABLET (FP) PO SCH (09:30)
[2018-03-20] MEDS: FINASTERIDE 5 MG TABLET (FP) PO SCH (09:30)
[2018-03-20] MEDS ORDERED: POLYETHYLENE GLYCOL 3350 119 GM BTL PO SCH (10:00)
--- NOTE | 2018-03-20 10:04 | EKG ---
Test Reason : Blood Pressure : / mmHG Vent. Rate : 075 BPM Atrial Rate : 075 BPM P-R Int : 156 ms QRS Dur : 100 ms QT Int : 384 ms P-R-T Axes : 035 028 128 degrees QTc Int : 428 ms NORMAL SINUS RHYTHM NONSPECIFIC T WAVE ABNORMALITY ABNORMAL ECG NO PREVIOUS ECGS AVAILABLE Confirmed by BIB ROBERT, BIMAL ([id number]) on 03/20/2018 10:04:09 AM Referred By: Tr Sauer Confirmed By:BIMAL MCCARTNEY MD
[2018-03-20 10:26] LABS: BASO % 0.1 % (0-2.0); EOS % 0.1 % (0-4.5); HEMATOCRIT 31.4 % (35.4-49); HEMOGLOBIN 9.9 GM/dL (11.7-16.9); LYMPH % 4.5 % (8-40); MCH 21.2 pg (25.7-33.7); MCHC 31.4 g/dl (32.0-35.9); MEAN CELL VOLUME 67.7 fl (80-96); MEAN PLT VOLUME 7.8 fl (7.5-11.1); MONO % 7.8 % (3.8-10.2); NEUT % 87.5 % (42.8-82.8); PLATELET COUNT 250 K/MM3 (134-434); RBC 4.64 M/mm3 (4.00-5.60); RDW 15.1 % (11.9-15.9); WHITE BLOOD COUNT 13.2 K/mm3 (4.0-10.0)
[2018-03-20 10:55] LABS: ALBUMIN 3.6 g/dl (3.4-5.0); ALK PHOS 69 U/L (45-117); ANION GAP 9 MMOL/L (8-16); BILIRUBIN,TOTAL 0.6 mg/dL (0.2-1); BLOOD UREA NITROGEN 13 mg/dL (7-18); CALCIUM 8.7 mg/dL (8.5-10.1); CHLORIDE 100 mmol/L (98-107); CO2 27 mmol/L (21-32); CREATININE 0.9 mg/dL (0.55-1.3); GLUCOSE,RANDOM 149 mg/dL (74-106); MAGNESIUM 2.1 mg/dL (1.8-2.4); POTASSIUM 3.9 mmol/L (3.5-5.1); SGOT/AST 43 U/L (15-37); SGPT/ALT 46 U/L (13-61); SODIUM 136 mmol/L (136-145); TOT PROT 6.9 g/dl (6.4-8.2)
[2018-03-20 11:38] LABS: ANISOCYTOSIS 1+; MACROCYTOSIS 0; PLATELET ESTIMATE NORMAL; TARGET CELLS 1+
--- NOTE | 2018-03-20 12:01 | PN ---
Physical Exam: SUBJECTIVE: Patient seen and examined at the bedside. Had chest pain last night, now resolved. OOB to chair. feels better today. OBJECTIVE: trop negative, chest sray neg. Vital Signs Period Temp Pulse Resp BP Sys/Domingo Pulse Ox Last 24 Hr 97.8 F-99.9 F 70-90 16-20 119-160/70-85 100-100 GENERAL: The patient is awake, alert, and fully oriented, in no acute distress. HEAD: Normal with no signs of trauma. EYES: PERRL, extraocular movements intact, sclera anicteric, conjunctiva clear. No ptosis. ENT: Ears normal, nares patent, oropharynx clear without exudates, moist mucous membranes. NECK: Trachea midline, full range of motion, supple. LUNGS: Breath sounds equal, clear to auscultation bilaterally HEART: Regular rate and rhythm ABDOMEN: Soft, nontender, nondistended, normoactive bowel sounds, no guarding, no rebound, no hepatosplenomegaly, no masses. EXTREMITIES: no edema. NEUROLOGICAL:Normal speech, gait not observed. PSYCH: Normal mood, normal affect. SKIN: Warm, dry, normal turgor, no rashes or lesions noted Laboratory Results - last 24 hr 03/19/18 03/20/18 03/20/18 18:10 09:41 09:41 WBC 13.2 H RBC 4.64 Hgb 9.9 L Hct 31.4 L MCV 67.7 L MCH 21.2 L MCHC 31.4 L RDW 15.1 Plt Count 250 MPV 7.8 Absolute Neuts (auto) 11.6 H Neutrophils % 87.5 H Lymphocytes % 4.5 L Monocytes % 7.8 Eosinophils % 0.1 Basophils % 0.1 Nucleated RBC % 0 Hypochromia 1+ Platelet Estimate Normal Polychromasia 1+ Poikilocytosis 1+ Anisocytosis 1+ Microcytosis 1+ Macrocytosis 0 Target Cells 1+ Sodium 136 Potassium 3.9 Chloride 100 Carbon Dioxide 27 Anion Gap 9 BUN 13 Creatinine 0.9 Creat Clearance w eGFR > 60 Random Glucose 149 H Calcium 8.7 Magnesium 2.1 Total Bilirubin 0.6 AST 43 H ALT 46 Alkaline Phosphatase 69 Troponin I < 0.02 Total Protein 6.9 Albumin 3.6 Active Medications Generic Name Dose Route Start Last Admin Trade Name Freq PRN Reason Stop Dose Admin Amlodipine Besylate 10 mg 03/19/18 10:00 03/20/18 09:30 Norvasc - PO 10 mg DAILY ESTELA Administration Atorvastatin Calcium 10 mg 03/18/18 22:30 03/19/18 22:17 Lipitor - PO 10 mg HS ESTELA Administration Docusate Sodium 100 mg 03/19/18 15:27 03/20/18 08:07 Colace - PO 100 mg BID PRN Administration CONSTIPATION Finasteride 5 mg 03/19/18 10:00 03/20/18 09:30 Proscar - PO 5 mg DAILY ESTELA Administration Losartan Potassium 50 mg 03/18/18 22:00 03/20/18 09:30 Cozaar - PO 50 mg BID ESTELA Administration Ondansetron HCl 4 mg 03/18/18 13:41 Zofran Injection IVPUSH Q6H PRN NAUSEA AND/OR VOMITING Oxycodone HCl 10 mg 03/18/18 13:41 03/20/18 08:20 Roxicodone - PO 10 mg Q4H PRN Administration PAIN LEVEL 7 - 10 Polyethylene Glycol 17 gm 03/20/18 10:00 03/20/18 09:30 Miralax (For Daily Use) - PO 17 grams DAILY ESTELA Administration Tamsulosin HCl 0.4 mg 03/19/18 08:30 03/20/18 08:20 Flomax - PO 0.4 mg DAILY@0830 ESTELA Administration ASSESSMENT/PLAN: Patient is a 67 year old male with a significant past medical history of spinal stenosis, hypertension, hld, dm (diet controlled), BPH, CAD, gout and insomnia. He is POD #2 of L2, L3 laminectomies, L4- L5 revision laminectomies, L2-L3 PLIF, T12-S1 PISF. Currently in the ICU for close post op monitoring. Back Surgery s/p laminectomies, L4- L5 revision laminectomies, L2-L3 PLIF, T12-S1 PISF. Currently in the ICU for close post op monitoring. Denies pain currently, + bowel sounds, tolerating diet. oob ambulating. Given preop antibiotics, vitals stable. wbc mildly elevated w/o fever. monitor Encourage incentive spirometer On IVF LR, SCDs bowel regimen Card: HLD: On Lipitor HTN: BP contolled on Cozaar CAD: On lipitor Endocrine: DM: Monitor daily serum glucose. : BPH, montior intake and output. On Proscar, flomax fen tolerating PO monitor electrolytes with daily labs advance diet as tolerated prophy SCDs No a/c full code Visit type - Emergency Visit Emergency Visit: Yes ED Registration Date: 03/18/18 Care time: The patient presented to the Emergency Department on the above date and was hospitalized for further evaluation of their emergent condition. - New Patient This patient is new to me today: No - Critical Care Critical Care patient: No - Discharge Referral Referred to [facility] Med P.C.: No
--- NOTE | 2018-03-20 12:12 | PN ---
Teaching Attending Note Name of Resident: Jania Diamond ATTENDING PHYSICIAN STATEMENT I saw and evaluated the patient. I reviewed the resident's note and discussed the case with the resident. I agree with the resident's findings and plan as documented. SUBJECTIVE: Pt seen and examined in the ICU. Pain controlled. No nausea, tolerating PO. + flatus. OOB yesterday. OBJECTIVE: Vital Signs Period Temp Pulse Resp BP Sys/Domingo Pulse Ox Last 24 Hr 97.8 F-99.9 F 70-90 16-20 119-160/70-85 100-100 Intake & Output 03/17/18 03/18/18 03/19/18 03/20/18 23:59 23:59 23:59 23:59 Intake Total 4035 1700 300 Output Total 2730 3610 10 Balance 1305 -1910 290 Weight 94.007 kg 94.007 kg Gen: NAD at rest Heart: RRR Lung: decreased breath sounds at the bases Abd: soft, nontender Ext: no edema Drain with serosanguinous fluid CBC, BMP 03/20/18 09:41 03/20/18 09:41 Active Medications Amlodipine Besylate (Norvasc -) 10 mg PO DAILY [facility] Last Admin: 03/20/18 09:30 Dose: 10 mg Atorvastatin Calcium (Lipitor -) 10 mg PO HS [facility] Last Admin: 03/19/18 22:17 Dose: 10 mg Docusate Sodium (Colace -) 100 mg PO BID PRN PRN Reason: CONSTIPATION Last Admin: 03/20/18 08:07 Dose: 100 mg Finasteride (Proscar -) 5 mg PO DAILY [facility] Last Admin: 03/20/18 09:30 Dose: 5 mg Losartan Potassium (Cozaar -) 50 mg PO BID [facility] Last Admin: 03/20/18 09:30 Dose: 50 mg Ondansetron HCl (Zofran Injection) 4 mg IVPUSH Q6H PRN PRN Reason: NAUSEA AND/OR VOMITING Oxycodone HCl (Roxicodone -) 10 mg PO Q4H PRN PRN Reason: PAIN LEVEL 7 - 10 Last Admin: 03/20/18 12:07 Dose: 10 mg Polyethylene Glycol (Miralax (For Daily Use) -) 17 gm PO DAILY [facility] Last Admin: 03/20/18 09:30 Dose: 17 grams Tamsulosin HCl (Flomax -) 0.4 mg PO DAILY@0830 [facility] Last Admin: 03/20/18 08:20 Dose: 0.4 mg ASSESSMENT AND PLAN: Lumbar spinal stenosis s/p L2, L3 Laminectomies/L4, L5 Revision Laminectomies s/p L2-L3 PLIF/T12-S1 PISF HTN Hypercholesterolemia BPH Anemia - pain control - incentive spirometry - PO as tolerated - monitor drain output - rehab/PT - DVT prophylaxis - can monitor on floor
[2018-03-20 12:45] VITALS: BMI 31.4
[2018-03-20] MEDS ORDERED: ACETAMINOPHEN 500 MG TABLET (FP) PO ONE (13:41)
--- NOTE | 2018-03-20 14:57 | PN ---
Progress Note (short form) - Note Progress Note: POD#2 Doing well. Walking in the hallway C/O mild incisional pain Vitals All stable CVS Stable RESP Clear ABD Soft passing flatus Wound Bandage dry Neuro At baseline ASSESS Doing well following extensive surgery., PLAN D/C Home tomorrow PAin Mx See in the office in 3 weeks
[2018-03-20] MEDS ORDERED: DOCUSATE SODIUM 100 MG CAPSULE (FP) PO PRN ×2 (15:48→20:49)
[2018-03-20] MEDS ORDERED: ONDANSETRON 4 MG/2 ML VIAL IVPUSH PRN ×2 (15:48→20:49)
[2018-03-20] MEDS ORDERED: oxyCODONE HCL 5 MG TABLET PO PRN (15:48)
--- NOTE | 2018-03-20 16:34 | PN ---
Physical Exam: SUBJECTIVE: - No complaints this morning - Still passing flatus, no BM - Up walking without issues - Some serosanguinous drainage from wound yesterday, no continued drainage - Surgical dressing and drain removed - OK to transfer per Dr Sauer OBJECTIVE: Vital Signs Period Temp Pulse Resp BP Sys/Domingo Pulse Ox Last 24 Hr 98.0 F-99.9 F 70-103 16-20 126-160/70-85 100-100 General: Comfortable, no acute distress HEENT: PERRL, EOMI, MMM, voice normal Cards: RRR, no murmur appreciated Pulm: Comfortable on room air, clear to auscultation bilaterally Abd: Soft, nontender, nondistended Back: Incision clean, dry. Minimal serosanguinous drainage. Inga in place. Dry gauze dressing replaced. Ext: Atraumatic. No LE edema. ROM intact. Strength 5/5 and equal bilaterally Vasc: Extremities WWP. Skin: Normal color, no rashes or lesions Neuro: A&Ox3, CN grossly intact, normal speech, motor/sensory grossly intact and symmetric Psych: Mood appropriate to situation Laboratory Results - last 24 hr 03/19/18 03/20/18 03/20/18 18:10 09:41 09:41 WBC 13.2 H RBC 4.64 Hgb 9.9 L Hct 31.4 L MCV 67.7 L MCH 21.2 L MCHC 31.4 L RDW 15.1 Plt Count 250 MPV 7.8 Absolute Neuts (auto) 11.6 H Neutrophils % 87.5 H Lymphocytes % 4.5 L Monocytes % 7.8 Eosinophils % 0.1 Basophils % 0.1 Nucleated RBC % 0 Hypochromia 1+ Platelet Estimate Normal Polychromasia 1+ Poikilocytosis 1+ Anisocytosis 1+ Microcytosis 1+ Macrocytosis 0 Target Cells 1+ Sodium 136 Potassium 3.9 Chloride 100 Carbon Dioxide 27 Anion Gap 9 BUN 13 Creatinine 0.9 Creat Clearance w eGFR > 60 Random Glucose 149 H Calcium 8.7 Magnesium 2.1 Total Bilirubin 0.6 AST 43 H ALT 46 Alkaline Phosphatase 69 Troponin I < 0.02 Total Protein 6.9 Albumin 3.6 Active Medications Generic Name Dose Route Start Last Admin Trade Name Freq PRN Reason Stop Dose Admin Amlodipine Besylate 10 mg 03/21/18 10:00 Norvasc - PO DAILY ESTELA Atorvastatin Calcium 10 mg 03/20/18 22:00 Lipitor - PO HS ESTELA Docusate Sodium 100 mg 03/20/18 15:48 Colace - PO BID PRN CONSTIPATION Finasteride 5 mg 03/21/18 10:00 Proscar - PO DAILY [facility] Losartan Potassium 50 mg 03/20/18 22:00 Cozaar - PO BID [facility] Ondansetron HCl 4 mg 03/20/18 15:48 Zofran Injection IVPUSH Q6H PRN NAUSEA AND/OR VOMITING Oxycodone HCl 10 mg 03/20/18 15:48 Roxicodone - PO Q4H PRN PAIN LEVEL 7 - 10 Polyethylene Glycol 17 gm 03/21/18 10:00 Miralax (For Daily Use) - PO DAILY [facility] Tamsulosin HCl 0.4 mg 03/21/18 08:30 Flomax - PO DAILY@0830 [facility] ASSESSMENT/PLAN: Ryan Milan is a 67yo man with a PMH of CAD, HTN, HLD, BPH, gout, primary insomia who was admitted to the ICU post L2,L3 laminectomy and PISF, L4,L5 revision laminectomy and PISF. His surgery was completed without apparent complication and he has recovered well postoperatively. Neuro: - s/p laminectomy - Adequate pain control with IV acetaminophen and PRN oxycodone - Avoid NSAIDS CV: - h/p CAD, HTN, HLD - Continue home losartan, atorvastatin, amlodipine Pulm: - No issues - Encourage OOB and IS 10x/hr Heme: - Postoperative acute blood loss anemia - Monitor daily CBC GI: - Passing flatus, no BM - Tolerating regular diet Renal: - Best removed, voiding spontaneously - UOP appropriate ID: - Perioperative ancef completed Endo: - No issues Musc: - WBAT BUE and BLE - PT/rehab - No heaving lifting, twisting, or bending - OOB as tolerated PPx: - Non-pharmacologic DVT ppx only. GILL hose in place - No indication for GI ppx FEN: - Clears, plan to advance as tolerated - SLIV - Replete lytes PRN Dispo: - Transfer to floor Seen and discussed with Dr Norris. Jania Diamond PGY1 Visit type - Emergency Visit Emergency Visit: No - New Patient This patient is new to me today: No - Critical Care Critical Care patient: Yes Total Critical Care Time (in minutes): 45 Critical Care Statement: The care of this patient involved high complexity decision making to prevent further life threatening deterioration of the patient 's condition and/or to evaluate & treat vital organ system(s) failure or risk of failure.
--- NOTE | 2018-03-20 18:37 | PATH ---
Surgical Pathology Report Patient Name: AURELIA PALMER Med. Rec. #: [id number] /Age/Gender: 1950 (Age: 67) / M Account: [id number] Location: ICU MOVER Taken: 03/18/2018 Received: 03/19/2018 Reported: 03/20/2018 Physicians: Tr Sauer M.D. Specimen(s) Received A: SKIN SCAR TISSUE B: DISC SPINE Clinical History Disc degeneration, lumbar region Final Diagnosis A. SKIN, SCAR, EXCISION: SKIN WITH DERMAL FIBROSIS CONSISTENT WITH SCAR. B. SPINE, DISC, LAMINECTOMY: INTERVERTEBRAL DISC TISSUE AND BONE. Electronically Signed Kasey Medrano M.D. Gross Description A. Received in formalin labeled "skin scar tissue" is an ellipse of ledesma skin which measures 16 x 0.7 cm, excised to a depth of 1.5 cm. There is a linear scar on the surface of the skin. Lead Instructor/Flight Attendant sections submitted in one cassette. B. Received in formalin labeled "disc spine" are multiple fragments of white-ledesma tissue and bone measuring 3 x 2 x 1 cm in aggregate. Entire specimen submitted in one cassette after brief decalcification. MLSZ/03/19/2018 [email or web address]/03/19/2018
[2018-03-20] MEDS ORDERED: MINERAL OIL ENEMA 133 ML ENEMA PR ONE ×2 (18:59→20:49)
[2018-03-20] MEDS ORDERED: hydrALAZINE HCL 20 MG/ML VIAL IVPUSH PRN (20:30)
[2018-03-20] MEDS ORDERED: LOSARTAN POTASSIUM 50 MG TABLET (FP) PO SCH (22:00)
[2018-03-20] MEDS ORDERED: ATORVASTATIN CA 10 MG TABLET (FP) PO SCH (22:00)
[2018-03-20] MEDS: ATORVASTATIN CA 10 MG TABLET (FP) PO SCH (22:04)
[2018-03-20] MEDS ORDERED: BISACODYL 10 MG SUPP.RECT RC ONE ×2 (22:26→23:15)
[2018-03-21] MEDS: oxyCODONE HCL 5 MG TABLET PO PRN ×4 (00:39→22:24)
[2018-03-21] MEDS ORDERED: POLYETHYLENE GLYCOL 3350 119 GM BTL PO ONE (02:29)
[2018-03-21 07:05] LABS: BASO % 0.1 % (0-2.0); EOS % 0.3 % (0-4.5); HEMATOCRIT 31.4 % (35.4-49); HEMOGLOBIN 9.7 GM/dL (11.7-16.9); LYMPH % 6.9 % (8-40); MCH 20.8 pg (25.7-33.7); MCHC 31.1 g/dl (32.0-35.9); MEAN PLT VOLUME 7.8 fl (7.5-11.1); MONO % 7.4 % (3.8-10.2); NEUT % 85.3 % (42.8-82.8); PLATELET COUNT 243 K/MM3 (134-434); RBC 4.68 M/mm3 (4.00-5.60); WHITE BLOOD COUNT 11.8 K/mm3 (4.0-10.0)
[2018-03-21 07:41] LABS: ALBUMIN 3.5 g/dl (3.4-5.0); ALK PHOS 70 U/L (45-117); ANION GAP 7 MMOL/L (8-16); BILIRUBIN,TOTAL 0.6 mg/dL (0.2-1); BLOOD UREA NITROGEN 11 mg/dL (7-18); CALCIUM 8.9 mg/dL (8.5-10.1); CHLORIDE 98 mmol/L (98-107); CO2 29 mmol/L (21-32); CREATININE 0.8 mg/dL (0.55-1.3); GLUCOSE,RANDOM 118 mg/dL (74-106); MAGNESIUM 2.1 mg/dL (1.8-2.4); POTASSIUM 4.2 mmol/L (3.5-5.1); SGOT/AST 43 U/L (15-37); SGPT/ALT 47 U/L (13-61); SODIUM 134 mmol/L (136-145)
[2018-03-21] MEDS ORDERED: TAMSULOSIN HCL 0.4 MG CAP.ER.24H (FP) PO SCH (08:30)
[2018-03-21] MEDS: TAMSULOSIN HCL 0.4 MG CAP.ER.24H (FP) PO SCH (09:41)
[2018-03-21] MEDS: FINASTERIDE 5 MG TABLET (FP) PO SCH (09:41)
[2018-03-21] MEDS: amLODIPine BESYLATE 10 MG TABLET (FP) PO SCH (09:41)
[2018-03-21] MEDS: LOSARTAN POTASSIUM 50 MG TABLET (FP) PO SCH ×2 (09:41→21:39)
[2018-03-21] MEDS ORDERED: FINASTERIDE 5 MG TABLET (FP) PO SCH (10:00)
[2018-03-21] MEDS ORDERED: amLODIPine BESYLATE 10 MG TABLET (FP) PO SCH (10:00)
[2018-03-21] MEDS ORDERED: POLYETHYLENE GLYCOL 3350 119 GM BTL PO SCH ×2 (10:00)
[2018-03-21] MEDS ORDERED: MAGNESIUM CITRATE 300 ML BOTTLE PO ONE (13:06)
--- NOTE | 2018-03-21 13:08 | PN ---
Physical Exam: SUBJECTIVE: Patient seen and examined at the bedside. having constipation. no nausea or vomiting. OBJECTIVE: constipated, + bowel sounds, soft abdomen, mildly distended given colace, fleet enema, not working mag citrate x 1 now discharge planning Vital Signs Period Temp Pulse Resp BP Sys/Domingo Pulse Ox Last 24 Hr 98.0 F-100.2 F 81-103 20-20 141-158/76-97 100-100 GENERAL: The patient is awake, alert, and fully oriented, in no acute distress. HEAD: Normal with no signs of trauma. EYES: PERRL, extraocular movements intact, sclera anicteric, conjunctiva clear. No ptosis. ENT: Ears normal, nares patent, oropharynx clear without exudates, moist mucous membranes. NECK: Trachea midline, full range of motion, supple. LUNGS: Breath sounds equal, clear to auscultation bilaterally HEART: Regular rate and rhythm ABDOMEN: Soft, nontender, nondistended, normoactive bowel sounds, no guarding, no rebound, no hepatosplenomegaly, no masses. EXTREMITIES: no edema. NEUROLOGICAL:Normal speech, gait not observed. PSYCH: Normal mood, normal affect. SKIN: Warm, dry, normal turgor, no rashes or lesions noted Laboratory Results - last 24 hr 03/21/18 03/21/18 06:30 06:30 WBC 11.8 H RBC 4.68 Hgb 9.7 L Hct 31.4 L MCV 67.0 L MCH 20.8 L MCHC 31.1 L RDW 15.0 Plt Count 243 MPV 7.8 Absolute Neuts (auto) 10.0 H Neutrophils % 85.3 H Lymphocytes % 6.9 L D Monocytes % 7.4 Eosinophils % 0.3 D Basophils % 0.1 Nucleated RBC % 0 Sodium 134 L Potassium 4.2 Chloride 98 Carbon Dioxide 29 Anion Gap 7 L BUN 11 Creatinine 0.8 Creat Clearance w eGFR > 60 Random Glucose 118 H Calcium 8.9 Magnesium 2.1 Total Bilirubin 0.6 AST 43 H ALT 47 Alkaline Phosphatase 70 Total Protein 7.0 Albumin 3.5 Active Medications Generic Name Dose Route Start Last Admin Trade Name Freq PRN Reason Stop Dose Admin Amlodipine Besylate 10 mg 03/21/18 10:00 03/21/18 09:41 Norvasc - PO 10 mg DAILY ESTELA Administration Atorvastatin Calcium 10 mg 03/20/18 22:00 03/20/18 22:04 Lipitor - PO 10 mg HS ESTELA Administration Docusate Sodium 100 mg 03/20/18 20:49 03/21/18 00:39 Colace - PO 100 mg BID PRN Administration CONSTIPATION Finasteride 5 mg 03/21/18 10:00 03/21/18 09:41 Proscar - PO 5 mg DAILY ESTELA Administration Hydralazine HCl 10 mg 03/20/18 20:30 Apresoline Injection - IVPUSH Q6H PRN HYPERTENSION Losartan Potassium 50 mg 03/20/18 22:00 03/21/18 09:41 Cozaar - PO 50 mg BID ESTELA Administration Magnesium Citrate 300 ml 03/21/18 13:06 Citroma - PO 03/21/18 13:07 ONCE ONE Ondansetron HCl 4 mg 03/20/18 20:49 Zofran Injection IVPUSH Q6H PRN NAUSEA AND/OR VOMITING Oxycodone HCl 10 mg 03/20/18 20:49 03/21/18 00:39 Roxicodone - PO 10 mg Q4H PRN Administration PAIN LEVEL 7 - 10 Polyethylene Glycol 17 gm 03/21/18 10:00 03/21/18 09:41 Miralax (For Daily Use) - PO 17 gm DAILY ESTELA Administration Tamsulosin HCl 0.4 mg 03/21/18 08:30 03/21/18 09:41 Flomax - PO 0.4 mg DAILY@0830 ESTELA Administration ASSESSMENT/PLAN: Patient is a 67 year old male with a significant past medical history of spinal stenosis, hypertension, hld, dm (diet controlled), BPH, CAD, gout and insomnia. He is POD #3 of L2, L3 laminectomies, L4- L5 revision laminectomies, L2-L3 PLIF, T12-S1 PISF. Back Surgery s/p laminectomies, L4- L5 revision laminectomies, L2-L3 PLIF, T12-S1 PISF. On oxycodone for pain based on pain levels + bowel sounds, tolerating diet. oob ambulating. constipated today. given fleets overnight w/o success. will try one dose of mag citrate. Given preop antibiotics, vitals stable. wbc mildly elevated w/o fever. monitor Encourage incentive spirometer bowel regimen Card: HLD: On Lipitor HTN: BP contolled on Cozaar CAD: On lipitor Endocrine: DM: Monitor daily serum glucose. : BPH, montior intake and output. On Proscar, flomax fen tolerating PO monitor electrolytes with daily labs advance diet as tolerated prophy SCDs No a/c full code Visit type - Emergency Visit Emergency Visit: Yes ED Registration Date: 03/18/18 Care time: The patient presented to the Emergency Department on the above date and was hospitalized for further evaluation of their emergent condition. - New Patient This patient is new to me today: No - Critical Care Critical Care patient: No - Discharge Referral Referred to [facility] Med P.C.: No
[2018-03-21] MEDS: POLYETHYLENE GLYCOL 3350 119 GM BTL PO SCH (21:39)
[2018-03-21] MEDS: ATORVASTATIN CA 10 MG TABLET (FP) PO SCH (21:39)
[2018-03-22] MEDS: oxyCODONE HCL 5 MG TABLET PO PRN ×4 (02:23→13:58)
[2018-03-22] MEDS: LOSARTAN POTASSIUM 50 MG TABLET (FP) PO SCH (09:26)
[2018-03-22] MEDS: amLODIPine BESYLATE 10 MG TABLET (FP) PO SCH (09:26)
[2018-03-22] MEDS: TAMSULOSIN HCL 0.4 MG CAP.ER.24H (FP) PO SCH (09:26)
[2018-03-22] MEDS: FINASTERIDE 5 MG TABLET (FP) PO SCH (09:26)
[2018-03-22] MEDS: POLYETHYLENE GLYCOL 3350 119 GM BTL PO SCH (09:28)
--- NOTE | 2018-03-22 09:41 | DS ---
Physical Exam: SUBJECTIVE: Patient seen and examined, feels well. pain managed. OBJECTIVE: Vital Signs Period Temp Pulse Resp BP Sys/Domingo Pulse Ox Last 24 Hr 98.1 F-99.6 F 72-113 16-20 130-152/59-97 100 PHYSICAL EXAM GENERAL: The patient is awake, alert, and fully oriented, in no acute distress. HEAD: Normal with no signs of trauma. EYES: PERRL, extraocular movements intact, sclera anicteric, conjunctiva clear. No ptosis. ENT: Ears normal, nares patent, oropharynx clear without exudates, moist mucous membranes. NECK: Trachea midline, full range of motion, supple. LUNGS: Breath sounds equal, clear to auscultation bilaterally HEART: Regular rate and rhythm ABDOMEN: Soft, nontender, nondistended, normoactive bowel sounds, no guarding, no rebound, no hepatosplenomegaly, no masses. EXTREMITIES: no edema. NEUROLOGICAL:Normal speech, gait not observed. PSYCH: Normal mood, normal affect. SKIN: Warm, dry, normal turgor, no rashes or lesions noted LABS HOSPITAL COURSE: Date of Admission:03/18/18 Date of Discharge: 03/22/18 ASSESSMENT/PLAN: Patient is a 67 year old male with a significant past medical history of spinal stenosis, hypertension, hld, dm (diet controlled), BPH, CAD, gout and insomnia. He is POD #3 of L2, L3 laminectomies, L4- L5 revision laminectomies, L2-L3 PLIF, T12-S1 PISF. Back Surgery s/p laminectomies, L4- L5 revision laminectomies, L2-L3 PLIF, T12-S1 PISF. On oxycodone for pain based on pain levels + bowel sounds, tolerating diet. oob ambulating. had 4 soft brown bowel movements Given preop antibiotics, vitals stable. Encourage incentive spirometer bowel regimen to continue as an outpatient Patient to follow up with Dr. Sauer for post surgical follow up. Card: HLD: On Lipitor HTN: BP controlled on Cozaar CAD: On lipitor Endocrine: DM: diet controlled. : BPH, On Proscar, flomax discharge home, with V[facility] and Dr. Sauer follow up. Minutes to complete discharge: 60 Discharge Summary Reason For Visit: OTHER INTERVERT DISC DEGEN, LUMBAR REGION Current Active Problems BPH (benign prostatic hyperplasia) (Acute) Borderline diabetes (Acute) Borderline diabetes mellitus (Acute) HLD (hyperlipidemia) (Acute) HTN (hypertension) (Acute) Primary insomnia (Acute) S/P laminectomy (Acute) Spinal stenosis (Acute) Condition: Improved - Instructions Diet, Activity, Other Instructions: Mr. Milan: You will be discharged home under the care of the visiting nurse service. Please continue to take mediations as prescribed. Please call for a follow up appointment with Dr. Sauer. Thank you for allowing us to care for you. Please call me with any questions. New medications: Miralax 17 grams daily, mix with your coffee, juice or plain water Colace take 3 times per day Senna 2 tabs at night Resume your home pain medication regimen as needed. Wound care: apply tefla on wound bed apply 4x4 sterile dressings on top of tefla for protection ABD pad for bottom of ben No Bending , twisting or lifting no more than 5 lbs Rosy Vincent NP [facility] [phone] Referrals: Daniel Mendoza [Non Staff, Medical] - Tr Sauer MD [Staff Physician] - Disposition: HOME - Home Medications Comprehensive Discharge Medication List: Ambulatory Orders Amlodipine Besylate 10 mg PO DAILY 01/16/18 Cholecalciferol (Vitamin D3) [Vitamin D3] 1,000 unit PO DAILY 01/16/18 Finasteride 5 mg PO DAILY 01/16/18 Ibuprofen 800 mg PO PRN PRN 01/16/18 Losartan Potassium 50 mg PO BID 01/16/18 Oxycodone HCl/Acetaminophen [Oxycodone-Acetaminophen 10-325] 1 each PO TID PRN 01/16/18 Pravastatin Sodium [Pravachol (Nf)] 40 mg PO HS 01/16/18 Sulfamethoxazole/Trimethoprim [Bactrim Ds -] 1 tab PO HS 01/16/18 Tamsulosin HCl 0.4 mg PO DAILY 01/16/18 Aspirin [ASA -] 81 mg PO DAILY 03/15/18 Eszopiclone [Lunesta] 3 mg PO HS PRN 03/15/18 This patient is new to me today: Yes Date on this admission: 03/22/18 Emergency Visit: No Critical Care patient: No - Discharge Referral Referred to [facility] No
[2018-03-22] MEDS ORDERED: PT OWN MED DRAWER 7, Y5N ONE (11:15)
[2018-03-22 16:18] VITALS: BP 128/68; PULSE 73; TEMP 98.4
== END 2018-03-22 15:16 | disposition home or self-care (01) | DRG 460 ==
LOC: JSAMEDAYSX 06:25 → EDSTATUS 08:00 → JICU 16:44 → J8W 03-20 20:57
PROVIDERS: ADMIT Orthopaedic Surgery Orthopaedic Surgery of the Spine; ATTEND Nurse Practitioner Family
PROC: 0SG1071 Fusion of 2 or more Lumbar Vertebral Joints with Autologous Tissue Substitute, Posterior Approach, Posterior Column, Open Approach (ICD-10-PCS; 2018-03-18)
PROC: 0QB00ZZ Excision of Lumbar Vertebra, Open Approach (ICD-10-PCS; principal; 2018-03-18 08:00)
DX: M48.061 Spinal stenosis, lumbar region without neurogenic claudication (principal); M40.209 Unspecified kyphosis, site unspecified; E78.5 Hyperlipidemia, unspecified; E11.9 Type 2 diabetes mellitus without complications; N40.0 Benign prostatic hyperplasia without lower urinary tract symptoms; I25.10 Atherosclerotic heart disease of native coronary artery without angina pectoris; D64.9 Anemia, unspecified; M10.9 Gout, unspecified; I10 Essential (primary) hypertension; F51.01 Primary insomnia
CPT/HCPCS: 36415; 71045-TC-FY; 80048; 80053; 83735; 84100; 84484; 85025; 85027; 86850; 86900; 86901; 88304-TC; 88311-TC; 93005; 93010; 94010; 94760; 97116-GP; 97161-GP; J0131; J1644